=== PATIENT | male | born 1940 | race Caucasian/White ===

== ENCOUNTER 2023-07-22 00:42 | Emergency (ER) | payer MEDICARE ==
[2023-07-22] MEDS ORDERED: Lorazepam 2 MG/ML VIAL ONE (00:56)
[2023-07-22 01:29] LABS: #Basophils 0.1 10x3/uL (0.0-0.2); #Eosinphils 0.1 10x3/uL (0.0-0.5); #Monocytes 0.6 10x3/uL (0.0-1.1); #Neutrophils 7.6 10x3/uL (1.5-8.4); %Basophils 0.7 % (0.0-2.0); %Eosinophils 1.1 % (0.0-6.0); %Lymphocytes 12.6 % (18.0-47.0); %Monocytes 6.2 % (0.0-10.0); %Neutrophils 78.8 % (40.0-75.0); Hematocrit 36.2 % (38.8-50.0); Hemoglobin 11.1 g/dL (13.5-17.5); Mean Corpuscular HGB CONC 30.7 g/dL (32.0-36.0); Mean Corpuscular Hemoglobin 27.1 pg (27.0-33.0); Mean Corpuscular Volume 88.5 fl (81.2-95.1); Mean Platelet Volume 10.2 fl (7.4-10.4); Platelet Count 122 10x3/uL (150-450); RBC Distribution Width 13.9 % (11.5-14.5); Red Blood Cell (RBC) Count 4.09 10x6/uL (4.32-5.72); White Blood Cell (WBC) Count 9.7 10x3/uL (3.5-10.5)
[2023-07-22 01:42] LABS: ALT (SGPT) 23 U/L (8-55); AST (SGOT) 42 U/L (5-34); Albumin 3.3 g/dL (3.4-4.8); Alkaline Phosphatase 141 U/L (40-110); Anion Gap 18 mmol/L (10-20); BUN (Urea Nitrogen) 48 mg/dL (8.4-25.7); Bilirubin, Total 0.5 mg/dL (0.2-1.2); Calc. Creatinine Clearance 0 mL/min (70-130); Calcium 10.8 mg/dL (7.8-10.44); Carbon Dioxide 27 mmol/L (23-31); Chloride 100 mmol/L (98-107); Estimated GFR 29; Globulin 3.7 g/dL (2.4-3.5); Glucose 122 mg/dL (83-110); Lipase 41 U/L (8-78); Potassium 3.8 mmol/L (3.5-5.1); Sodium 141 mmol/L (136-145)
[2023-07-22 01:45] LABS: Troponin I 0.032 ng/mL (< 0.028)
[2023-07-22 02:50] LABS: Bilirubin Neg (Negative); Blood, Urine 250 (Negative); Clarity Cloudy (Clear); Glucose, Urine (Dipstick) Normal (Negative); Ketone, Urine Negative (Negative); Leukocyte 500 (Negative); Nitrite Negative (Negative); Protein, Urine (Dipstick) 100 mg/dl (Neg-Trace); Urobilinogen Normal mg/dL (Less than 2)
[2023-07-22 02:57] LABS: CAUTI Indications for Culture Alt mental st,lethar; RBC/HPF Greater than 50 HPF (0-3); WBC/HPF Greater than 50 HPF (0-3)
[2023-07-22 02:58] LABS: Bacteria/HPF 4+ HPF (None Seen)
[2023-07-22 02:59] LABS: Squamous Epithelial 0-3 HPF (0-3)
[2023-07-22 03:00] LABS: Urine Culture Reflex Yes Yes
[2023-07-22] MEDS ORDERED: cefTRIAXone (ROCEPHIN) 2 GM VIAL ONE (03:41)
[2023-07-22] MEDS ORDERED: Iopamidol 370 76% 100 ML VIAL ONE (10:18)
== END 2023-07-22 04:33 | disposition short-term general hospital (02) ==
LOC: CSHERS 00:42
DX: J44.9 Chronic obstructive pulmonary disease, unspecified (principal); I30.9 Acute pericarditis, unspecified
CPT/HCPCS: 36415; 36416; 71045; 71260; 71275; 80053; 81001; 83605; 83690; 83735; 84484; 85025; 87040; 87077; 87086; 93005; 94760; J0696; J2060; J7611; Q9967